=== PATIENT | female | born 1970 | race African-American/Black ===

== ENCOUNTER 2022-02-23 13:53 | Emergency (ER) | payer BC, SELFPAY ==
[2022-02-23] MEDS ORDERED: Ketorolac Tromethamine 30 MG/ML VIAL ONE (16:03)
[2022-02-23] MEDS ORDERED: Dexamethasone 10 MG/ML VIAL ONE (16:03)
[2022-02-23] MEDS ORDERED: Orphenadrine Citrate 60 MG/2 ML VIAL IM SCH (16:30)
== END 2022-02-23 19:08 | disposition home or self-care (01) ==
LOC: CSHERS 13:53
DX: S39.012A Strain of muscle, fascia and tendon of lower back, initial encounter (principal); E78.5 Hyperlipidemia, unspecified; X58.XXXA Exposure to other specified factors, initial encounter
CPT/HCPCS: 72100; 96372; 96374; 96375; J1100; J1885; J2360

== ENCOUNTER 2023-02-28 20:22 | Emergency (ER) | payer OTHER, SELFPAY ==
[2023-02-28 21:21] LABS: #Eosinphils 0.1 10x3/uL (0.0-0.5); #Monocytes 0.5 10x3/uL (0.0-1.1); #Neutrophils 5.7 10x3/uL (1.5-8.4); %Basophils 0.3 % (0.0-2.0); %Eosinophils 0.6 % (0.0-6.0); %Lymphocytes 28.2 % (18.0-47.0); %Neutrophils 64.7 % (40.0-75.0); Hematocrit 42.6 % (34.9-44.5); Hemoglobin 14.3 g/dL (12.0-15.5); Mean Corpuscular HGB CONC 33.6 g/dL (32.0-36.0); Mean Corpuscular Hemoglobin 28.9 pg (27.0-33.0); Mean Corpuscular Volume 86.2 fl (81.6-98.3); Mean Platelet Volume 8.9 fl (7.4-10.4); Platelet Count 382 10x3/uL (150-450); RBC Distribution Width 13.1 % (11.5-14.5); Red Blood Cell (RBC) Count 4.94 10x6/uL (3.90-5.03); White Blood Cell (WBC) Count 8.8 10x3/uL (3.5-10.5)
[2023-02-28 21:40] LABS: ALT (SGPT) 29 U/L (8-55); AST (SGOT) 22 U/L (5-34); Albumin 4.1 g/dL (3.5-5.0); Alkaline Phosphatase 59 U/L (40-110); Anion Gap 15 mmol/L (10-20); BUN (Urea Nitrogen) 8 mg/dL (9.8-20.1); Bilirubin, Total 0.3 mg/dL (0.2-1.2); Calc. Creatinine Clearance 0 mL/min (70-130); Calcium 8.8 mg/dL (7.8-10.44); Carbon Dioxide 20 mmol/L (22-29); Chloride 108 mmol/L (98-107); Estimated GFR 84; Globulin 2.9 g/dL (2.4-3.5); Glucose 106 mg/dL (70-105); Potassium 3.9 mmol/L (3.5-5.1); Sodium 139 mmol/L (136-145)
[2023-02-28 21:46] LABS: Troponin I Less than 0.010 ng/mL (< 0.028)
[2023-02-28 23:38] LABS: Bilirubin Neg (Negative); Blood, Urine Negative (Negative); Clarity Clear (Clear); Glucose, Urine (Dipstick) Normal (Negative); Ketone, Urine Negative (Negative); Leukocyte Negative (Negative); Nitrite Negative (Negative); Protein, Urine (Dipstick) Negative (Neg-Trace); Specific Gravity, Urine 1.015 (1.005-1.030); Urobilinogen Normal mg/dL (Less than 2)
[2023-03-01 00:26] LABS: Bacteria/HPF Rare-Few HPF (None Seen); CAUTI Indications for Culture Alt mental st,lethar; RBC/HPF 0-3 HPF (0-3); Squamous Epithelial 0-3 HPF (0-3); WBC/HPF 0-3 HPF (0-3)
[2023-03-01 00:27] LABS: Urine Culture Reflex No No
== END 2023-03-01 00:06 | disposition home or self-care (01) ==
LOC: CSHERS 20:22
DX: F43.0 Acute stress reaction (principal); E78.5 Hyperlipidemia, unspecified
CPT/HCPCS: 36416; 70450; 80053; 81001; 83735; 84443; 84484; 85025; 93005